=== PATIENT | female | born 1990 ===

== ENCOUNTER 2018-01-06 15:49 | Emergency (ER) | payer SELFPAY ==
[2018-01-06 15:49] VITALS: BMI 28.6
[2018-01-06 16:05] VITALS: BP 124/82; PULSE 80; RESP 19; TEMP 98.2; O2SAT 100
[2018-01-06] MEDS ORDERED: Naproxen 500 MG TAB PO STA (16:22)
--- NOTE | 2018-01-06 16:26 | ED PDOC ---
HPI: Back Time Seen by Provider: 01/06/18 16:13 Chief Complaint (Nursing): Back Pain Chief Complaint (Provider): Back Pain History Per: Patient History/Exam Limitations: no limitations Onset/Duration Of Symptoms: Days (x 2 weeks) Current Symptoms Are (Timing): Still Present Exacerbating Factor(s): Sitting Additional Complaint(s): Patient reports pain in the left lower back, onset 2 weeks ago. No other associated symptoms. States pain had gradual onset, is intermittent, and worsens when sitting. 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 Otherwise: (-) trauma, (-) injury, (-) paresthesias, (-) weakness, (-) acute bowel or bladder dysfunction, (-) fever. No prior history of back problems. PMD: Dr. Hank Davis Past Medical History Reviewed: Historical Data, Nursing Documentation, Vital Signs Vital Signs: Last Vital Signs Temp 98.2 F 01/06/18 16:04 Pulse 80 01/06/18 16:04 Resp 19 01/06/18 16:04 BP 124/82 01/06/18 16:04 Pulse Ox 100 01/06/18 16:04 - Medical History PMH: Anemia (Iron deficient) Denies: Chronic Kidney Disease - Surgical History Surgical History: No Surg Hx - Family History Family History: States: Unknown Family Hx - Social History Ex-Smoker (has not smoked in the last 12 months): Yes Alcohol: Social Drugs: Denies - Home Medications Home Medications: Ambulatory Orders Medication Instructions Recorded Fluconazole [Diflucan] 150 mg PO DAILY #1 tab 12/24/15 Desogestrel-Ethinyl Estradiol 1 each PO DAILY #50 tablet 09/07/16 [Reclipsen 28 Day Tablet] Ferrous Sulfate [Feosol] 324 mg PO BID #30 ect 09/07/16 oxyCODONE/Acetaminophen [Percocet 1 tab PO Q6H PRN #10 tab 09/09/16 5/325 mg Tab] Cyclobenzaprine [Cyclobenzaprine 10 mg PO TID PRN #15 tab 01/06/18 HCl] Naproxen 500 mg PO BID PRN #30 tab 01/06/18 - Allergies Allergies/Adverse Reactions: Allergies Allergy/AdvReac Type Severity Reaction Status Date / Time Penicillins Allergy RASH Verified 09/08/16 18:43 Sulfa (Sulfonamide Allergy RASH Verified 09/08/16 18:43 Antibiotics) Review of Systems ROS Statement: Except As Marked, All Systems Reviewed And Found Negative Constitutional: Negative for: Fever, Chills Genitourinary Female: Negative for: Dysuria, Frequency, Incontinence, Hematuria Musculoskeletal: Positive for: Back Pain. Negative for: Neck Pain Neurological: Negative for: Weakness, Numbness Physical Exam - Reviewed Nursing Documentation Reviewed: Yes Vital Signs Reviewed: Yes - Physical Exam Comments: GENERAL APPEARANCE: Patient is awake, alert, oriented x 3, in no acute distress. Patient ambulatory in the ER. SKIN: Warm, dry; (-) cyanosis. EYES: (-) conjunctival pallor. ENMT: Mucous membranes moist. NECK: (-) tenderness, (-) stiffness, (-) lymphadenopathy. CHEST AND RESPIRATORY: (-) rales, (-) rhonchi, (-) wheezes; breath sounds equal bilaterally. HEART AND CARDIOVASCULAR: (-) irregularity; (-) murmur, (-) gallop. ABDOMEN AND GI: Soft; (-) tenderness; (-) palpable mass. BACK: (+) left paralumbar tenderness, (-) direct bony tenderness, (-) deformity. Straight leg raising (-) bilaterally. EXTREMITIES: (-) deformity. Distal pulses good bilaterally. NEURO AND PSYCH: Mental status as above. Intact sensation bilaterally; normal strength in extension of the knees, plantar and dorsiflexion of the toes. - ECG O2 Sat by Pulse Oximetry: 100 (RA) Pulse Ox Interpretation: Normal Medical Decision Making Medical Decision Making: Time: 16:22 Initial Plan: --Urinalysis --Urine culture --Naproxen 550 mg PO --Flexeril 10 mg PO --Reevaluation Uhcg (-) UA (-) for infection On reevaluation, the patient reports that her pain is improving. Patient is sitting comfortably in the chair in no acute distress. She offers no complaints at this time. Diagnosis low back pain likely due to muscle spasm discussed the patient in great detail. Based on history, exam and diagnostic results plan will be for outpatient follow -up. Advised to follow up with primary care physician or the clinic in 1-2 days without fail. Advised to take medication as prescribed. Return to the emergency room at any time for any new or worsening symptoms. Patient states she fully agrees with and understands discharge instructions. States that she agrees with the plan and disposition. Verbalized and repeated discharge instructions and plan. I have given the patient opportunity to ask any additional questions. Scribe Attestation: Documented by Tena Bautista, acting as a scribe for Clotilde Mcmanus PA-C. Provider Scribe Attestation: All medical record entries made by the Scribe were at my direction and personally dictated by me. I have reviewed the chart and agree that the record accurately reflects my personal performance of the history, physical exam, medical decision making, and the department course for this patient. I have also personally directed, reviewed, and agree with the discharge instructions and disposition. Disposition - Clinical Impression Clinical Impression: Low back pain - Patient ED Disposition Is Patient to be Admitted: No Counseled Patient/Family Regarding: Studies Performed, Diagnosis, Need For Followup, Rx Given - Disposition [facility]errals: [facility] [Outside] Disposition Time: 17:45 Condition: STABLE Additional Instructions: Thank you for letting us take care of you today. You were treated for low back pain. The emergency medical care you received today was directed at your acute symptoms. If you were prescribed any medication, please fill it and take as directed. It may take several days for your symptoms to resolve. Return to the Emergency Department if your symptoms worsen, do not improve, or if you have any other problems. Please contact your doctor in 2 days for re-evaluation and follow up / or call one of the physicians/clinics you have been referred to that are listed on the Patient Visit Information form that is included in your discharge packet. Bring any paperwork you were given at discharge with you along with any medications you are taking to your follow up visit. Our treatment cannot replace ongoing medical care by a primary care provider (PCP) outside of the emergency department. Thank you for allowing the [facility] team to be part of your care today. Prescriptions: Cyclobenzaprine [Cyclobenzaprine HCl] 10 mg PO TID PRN #15 tab PRN Reason: Muscle Spasm Naproxen 500 mg PO BID PRN #30 tab PRN Reason: Pain, Moderate (4-7) Instructions: Low Back Pain in Adults Forms: [facility] (Telugu), [facility] ED School/Work Excuse
[2018-01-06 17:25] LABS: SQUAMOUS EPITHIAL < 1 /hpf (0-5); URINE BILIRUBIN NEGATIVE (NEGATIVE); URINE BLOOD MODERATE (NEGATIVE); URINE CLARITY CLEAR (Clear); URINE COLOR YELLOW (YELLOW); URINE GLUCOSE (UA) NEG (Normal); URINE LEUKOCYTE ESTERASE NEG Leu/uL (Negative); URINE PROTEIN NEGATIVE (NEGATIVE); URINE UROBILINOGEN 0.2-1.0 mg/dL (0.2-1.0)
== END 2018-01-06 18:06 | disposition home or self-care (01) ==
LOC: H.ER 15:49
DX: M54.5 Low back pain (principal)